=== PATIENT | female | born 1985 | race Caucasian/White ===

== ENCOUNTER 2021-09-04 22:04 | Emergency (ER) | payer OTHER ==
[~2021-09-04] VITALS: Ht 162.6 cm; Wt 90.7 kg
--- NOTE | ~2021-09-04 | EMS ---
[address] [address] EMS Patient Care Report Name: BERNICE PIMENTEL Room #: DEP TRINY Castro#: [id number] Admission: 09/04/21 Attend Phys: Discharge: 09/05/21 Date of : [birth year] Report #: [id number] THIS REPORT FOR: //name// Report Transmitted: 09/05/2021 10:34 EMS Care Summary [place], [place]/[facility] Incident [phone] @ 09/04/2021 21:03 Incident [address] [place] [address] Patient BERNICE SMILEY Female, 36 Years 1985 Patient Address [address] [place] [address] Patient History None Reported, Patient Allergies Other drug allergy, Patient Medications None Reported, Chief Complaint My chest hurts when I breathe and palpation Disposition Transported No Lights/[place] Dispatch Reason Breathing Problem Transported To [facility] Narrative Sudden onset of CP, heart palpitations and dizziness. Pt was having a BM upon arrival and c/o of flushing sensation. She states this has never happened before. Vitals and 12 lead obtained, no signs of ST elevation present. Pt stated she would have her BF take her to the hospital by POV. Pt signed the [address] [address] EMS Patient Care Report Name: BERNICE PIMENTEL Room #: DEP [facility].#: [id number] Admission: 09/04/21 Attend Phys: Discharge: 09/05/21 Date of : [birth year] Report #: [id number] refusal, M41 returned to service. On the way back to the station, they called back and requested us to come back in that she wanted an ambulance to now take her to the hospital. Upon return, pt said she got up to get dressed, she got shaky and felt like she was going to pass out. She was assisted to the EMS cot and loaded into the ambulance w/o incident. Vitals obtained. Attempt IV w/o success. En route: no changes, pt stated she was thirsty and needed to pee. RR to the ER. Arrived: pt taken to ER #7 and moved to their bed w/o incident. Pt care & report to ER staff. Initial Vitals @21:18P: 135,HI Suspected: false @21:15P: 131,BP: 131/86,Pain: 4/10,GCS: 15,CO: 4,SpO2: 100, @21:20P: 121,R: 18,Pain: 0/10,GCS: 15,HI Suspected: false @21:50P: 125,R: 18,BP: 142/89,Pain: 6/10,GCS: 15,SpO2: 98,Revised Trauma: 12, Assessments @21:12MENTAL:Time Oriented,Person Oriented,Event Oriented,Place Oriented,SKIN:HEENT:LUNG SOUNDS:ABDOMEN:PELVIS//GI:EXTREMITIES:Left Arm: No Abnormalities,Right Arm: No Abnormalities,Left Leg: No Abnormalities,Right Leg: No Abnormalities,PULSE:Radial: 2+ Normal,NEURO:No Abnormalities, Impression Chest pain on breathing Procedures @21:20 12-Lead ECG Response: UnchangedSucceeded @21:18 3-Lead ECG Response: UnchangedSucceeded @21:12 ALS Assessment Response: UnchangedSucceeded @21:50 IV Therapy - Saline Lock cc (18 ga) Site: Antecubital-Left Response: UnchangedFailed Timeline 21:01,Call Received 21:01,Dispatch Notified 21:03,Dispatched 21:04,En Route 21:11,On Scene 21:12,At Patient 21:12,ALS Assessment,Response: UnchangedSucceeded, 21:15,BP: 131/86 M,PULSE: 131,RR: R,SPO2: 100 Ox,ETCO2: ,BG: ,PAIN: 4,GCS: 15, 21:18,3-Lead ECG,Response: UnchangedSucceeded, 21:18,BP: / M,PULSE: 135,RR: R,SPO2: Ox,ETCO2: ,BG: ,PAIN: ,GCS: , 21:20,12-Lead ECG,Response: UnchangedSucceeded, 21:20,BP: / M,PULSE: 121,RR: 18 R,SPO2: Ox,ETCO2: ,BG: ,PAIN: 0,GCS: 15, 21:48,Depart Scene [address] [address] EMS Patient Care Report Name: BERNICE PIMENTEL Room #: DEP TRINY Castro#: [id number] Admission: 09/04/21 Attend Phys: Discharge: 09/05/21 Date of : [birth year] Report #: [id number] 21:50,IV Therapy - Saline Lock cc 18 ga Site: Antecubital-Left,Response: UnchangedFailed, 21:50,BP: 142/89 M,PULSE: 125,RR: 18 R,SPO2: 98 Ox,ETCO2: ,BG: ,PAIN: 6,GCS: 15, 22:01,At Destination 22:16,Call Closed Disclaimer v1.1 Copyright 2021 [employer] This EMS Care Summary contains data elements from the applicable legal record (which may be displayed differently). It is designed to provide pertinent information for the following purposes: continuity of care, clinical quality, and state data reporting. The complete legal record is available to ED staff and administrators of the receiving hospital in [facility]'s Patient Tracker. All data is provided "as is."
[2021-09-04 22:26] LABS: URINE BILIRUBIN NEGATIVE (Negative); URINE BLOOD NEGATIVE (Negative); URINE CLARITY CLEAR; URINE COLOR YELLOW; URINE GLUCOSE-RANDOM* NEGATIVE (Negative); URINE KETONES NEGATIVE (Negative); URINE LEUKOCYTES-REFLEX NEGATIVE (Negative); URINE NITRITE-REFLEX NEGATIVE (Negative); URINE PROTEIN (DIPSTICK) NEGATIVE (Negative); URINE UROBILINOGEN 0.2 E.U./dl (0.2-1.0)
[2021-09-04 22:48] LABS: CREATININE 0.5 mg/dL (0.6-1.0); POTASSIUM 4.9 mmol/L (3.5-5.1)
[2021-09-04 22:48] LABS: ABSOLUTE NEUTROPHILS 7.3 thou/uL (1.4-8.2); BASOPHILS 0.6 % (0.0-2.0); EOSINOPHILS 1.4 % (0.0-3.0); HEMATOCRIT 44.1 % (37.0-47.0); HEMOGLOBIN 14.6 gm/dL (12.0-15.0); LYMPHOCYTES 27.5 % (24.0-44.0); MCH 31.3 pg (26.0-34.0); MCV 94.8 fL (80.0-100.0); MONOCYTES 4.5 % (1.0-8.0); PLATELET COUNT 299 thou/uL (150-400); RBC 4.65 mil/uL (4.20-5.00); RDW 13.3 % (10.5-14.5); WBC 11.1 thou/uL (4.0-11.0)
[2021-09-04 22:50] LABS: AMP/METHAMP Negative (Negative); BARBITURATES Negative (Negative); BENZODIAZEPINES Negative (Negative); COCAINE Negative (Negative); METHADONE Negative (Negative); OPIATES Negative (Negative); PCP Negative (Negative)
[2021-09-04 23:00] LABS: ALBUMIN 3.8 g/dL (3.4-5.0); TOTAL BILIRUBIN 0.3 mg/dL (0.2-1.0); TOTAL PROTEIN 7.2 g/dL (6.4-8.2)
[2021-09-05 00:52] VITALS: BP 104/67
--- NOTE | 2021-09-05 17:19 | EKG ---
[address] [address] ELECTROCARDIOGRAM REPORT Name: PIMENTELBERNICE [id number] Admission: 09/04/21 Attend Phys: Discharge: 09/05/21 Date of : [birth year] Report #: [id number] [facility] ED Test Date: 2021-09-04 Test Time: 22:16:55 Pat Name: BERNICE PIMENTEL Department: Room: Gender: F Brand Strategist: NILESH : 1985 Requested By: Kehinde Royal Order Number: [id number] MD: Franklin Lomeli Measurements Intervals [place] Rate: 109 P: 50 OR: 141 QRS: 28 QRSD: 130 T: 21 QT: 324 QTc: 437 Interpretive Statements Sinus tachycardia Nonspecific ST segment abnormality No previous ECG available for comparison Electronically Signed On 09-05-2021 17:19:22 [employer] by Franklin Lomeli [email or web address] <ELECTRONICALLY SIGNED> By: Franklin Lomeli MD, [facility] 09/05/21 1719 2216 2216 Franklin Lomeli MD, FACC /EPI
== END 2021-09-05 01:11 | disposition home or self-care (01) ==
LOC: ER 22:04
PROVIDERS: Emergency Medicine
DX: R07.89 Other chest pain (principal); Z20.822 Contact with and (suspected) exposure to COVID-19

== ENCOUNTER 2021-09-11 01:32 | Emergency (ER) | payer OTHER ==
[~2021-09-11] VITALS: Ht 162.6 cm; Wt 90.7 kg
[2021-09-11] MEDS ORDERED: PROAIR HFA8.5 GM INH (01:56)
[2021-09-11] MEDS ORDERED: FLEXERIL PO (01:57)
[2021-09-11] MEDS ORDERED: ONDANSETRON HCL4 M2 PO (01:57)
[2021-09-11 02:18] LABS: URINE BILIRUBIN NEGATIVE (Negative); URINE BLOOD 1+ (Negative); URINE CLARITY CLEAR; URINE COLOR YELLOW; URINE GLUCOSE-RANDOM* NEGATIVE (Negative); URINE KETONES NEGATIVE (Negative); URINE LEUKOCYTES-REFLEX NEGATIVE (Negative); URINE NITRITE-REFLEX NEGATIVE (Negative); URINE PROTEIN (DIPSTICK) NEGATIVE (Negative); URINE SPECIFIC GRAVITY >= 1.030 (1.005-1.035); URINE UROBILINOGEN 0.2 E.U./dl (0.2-1.0)
[2021-09-11 02:26] LABS: BACTERIA-REFLEX 1-9 Few /HPF (None Seen); CASTS None Seen /LPF (None Seen); CRYSTALS None Seen /LPF (None Seen); MUCUS 0-3 Light strn/LPF (None Seen); SQUAMOUS 0-3 Few /LPF (0-3); URINE RBC 3-10 Few /HPF (NONE SEEN); URINE WBC-REFLEX 0-5 Rare /HPF (0-5)
[2021-09-11 02:27] LABS: ABSOLUTE NEUTROPHILS 7.1 thou/uL (1.4-8.2); BASOPHILS 0.9 % (0.0-2.0); HEMATOCRIT 42.8 % (37.0-47.0); HEMOGLOBIN 14.6 gm/dL (12.0-15.0); LYMPHOCYTES 28.4 % (24.0-44.0); MCH 31.4 pg (26.0-34.0); MCHC 34.2 g/dL (28.0-37.0); MCV 91.9 fL (80.0-100.0); MONOCYTES 5.6 % (1.0-8.0); PLATELET COUNT 295 thou/uL (150-400); POLYS 64.1 % (36.0-66.0); RBC 4.66 mil/uL (4.20-5.00); RDW 12.8 % (10.5-14.5)
[2021-09-11 02:35] LABS: CALCIUM 8.9 mg/dL (8.5-10.1); CREATININE 0.7 mg/dL (0.6-1.0); POTASSIUM 3.6 mmol/L (3.5-5.1)
[2021-09-11 02:45] LABS: ALBUMIN 3.8 g/dL (3.4-5.0); TOTAL BILIRUBIN 0.6 mg/dL (0.2-1.0)
[2021-09-11] MEDS ORDERED: ZOFRAN ODT4 MG PO (02:55)
[2021-09-11 03:15] VITALS: BP 111/93
--- NOTE | 2021-09-12 10:02 | EKG ---
[place] [address] [facility] [place] [address] ELECTROCARDIOGRAM REPORT Name: PIMENTELBERNICE Room #: [facility] [id number] Admission: 09/11/21 Attend Phys: Discharge: 09/11/21 Date of : [birth year] Report #: [id number] [facility] ED Test Date: 2021-09-11 Test Time: 01:43:29 Pat Name: BERNICE PIMENTEL Department: Room: Gender: F Foreign Diplomat: NEAL : 1985 Requested By: Art Pepper Order Number: [id number] MD: Da Vasquez Measurements Intervals [place] Rate: 81 P: 55 LA: 139 QRS: 35 QRSD: 84 T: 16 QT: 384 QTc: 446 Interpretive Statements Sinus rhythm Probable left atrial enlargement Compared to ECG 09/04/2021 22:16:55 Sinus tachycardia no longer present ST (T wave) deviation no longer present Electronically Signed On 09-11-2021 7:24:54 [employer] by Da Vasquez [email or web address] <ELECTRONICALLY SIGNED> By: Da Vasquez MD, [facility] 09/11/21723 2 0143 Da Vasquez MD, FACC /EPI
== END 2021-09-11 03:20 | disposition home or self-care (01) ==
LOC: ER 01:32
PROVIDERS: Emergency Medicine
DX: K52.9 Noninfective gastroenteritis and colitis, unspecified (principal); R06.00 Dyspnea, unspecified; R42 Dizziness and giddiness; Z79.899 Other long term (current) drug therapy

== ENCOUNTER → 2021-10-11 | Outpatient (CLI) | payer OTHER ==
[~2021-10-11] MED LIST: FLEXERIL PO; ONDANSETRON HCL4 M2 PO; PROAIR HFA8.5 GM INH; ZOFRAN ODT4 MG PO
== END ==
LOC: SJCVCIMAG 08:51
PROVIDERS: ATTEND Internal Medicine
DX: R00.2 Palpitations (principal); R07.9 Chest pain, unspecified